=== PATIENT | female | born 1980 | race Caucasian/White ===

== ENCOUNTER 2020-10-14 17:58 | Emergency (ER) | payer OTHER ==
[~2020-10-14] VITALS: Ht 162.6 cm; Wt 65.8 kg
[~2020-10-14 17:58] MED LIST: ALBU90OI INH; ALPR.25 PO; ALPR.5; AMIT50 PO; AMOCLA500 PO; ATOM40; BUSP15; CEPH500 PO; CITA20 PO; CRUTCH3 USE; CRUTCH4 USE; CYCL10 PO; DIPH25 PO; ERYT500 PO; HYDACE5 PO; HYDCOR1TC TOP; IBUP600 PO; IBUP800 PO; LORA1 PO; MAGCIT300 PO; META800 PO; METO10 PO; METPRE4DP PO; NAPR500; Naprosyn500 MG PO; OXYACE5T PO; PENVK500 PO; PROACE100 PO; PRODEXEL PO; PROM25 PO; RXCLIN PO; RXIBUP800 PO; RXPROACE PO; RXTRAM50 PO; SERT100; SERT50 PO; SULTRIDS PO; TRAM50 PO; Zithromax250 MG PO
[2020-10-14 18:56] LABS: Source, Urine Clean Catch
[2020-10-14 18:56] LABS: BASOPHILS ABSOLUTE AUTO 0.03 K/mm3 (0.00-0.23); BASOPHILS PERCENT AUTO 0 % (0-2); EOSINOPHILS ABSOLUTE AUTO 0.06 K/mm3 (0.00-0.68); EOSINOPHILS PERCENT AUTO 1 % (0-6); Hematocrit 37.4 % (33.0-51.0); Hemoglobin 12.7 g/dL (11.5-16.0); IMMATURE GRAN ABSOLUTE AUTO 0.06 K/mm3 (0.00-0.10); IMMATURE GRAN PERCENT AUTO 1 % (0-1); LYMPHOCYTES ABSOLUTE AUTO 0.79 K/mm3 (0.84-5.20); LYMPHOCYTES PERCENT AUTO 9 % (21-46); MONOCYTES ABSOLUTE AUTO 0.38 K/mm3 (0.16-1.47); MONOCYTES PERCENT AUTO 4 % (4-13); Mean Corpuscular HGB 30.1 pg (26.0-34.0); Mean Corpuscular Volume 89 fL (80-100); Mean Platelet Volume 10.3 fL (9.1-12.4); NEUTROPHILS ABSOLUTE AUTO 7.51 K/mm3 (1.96-9.15); NEUTROPHILS PERCENT AUTO 85 % (41-73); Platelet Count 138 K/mm3 (150-400); RDW Coefficient Variation 17.7 % (11.7-14.2); RDW Standard Deviation 57.1 fL (35.1-46.3); Red Blood Cell Count 4.22 M/mm3 (3.80-5.20); White Blood Cell Count 8.83 K/mm3 (4.00-11.30)
[2020-10-14 19:02] LABS: Appearance, Urine Hazy (Clear); Blood, Urine 2+ (Neg); Color, Urine Yellow (P-Yellow); Glucose Qualitative, Urine 1+ (Neg); Ketones, Urine 2+ (Neg); Leukocyte Esterase, Urine 1+ (Neg); Nitrite, Urine Neg (Neg); Protein, Urine 3+ (Neg); Urobilinogen, Urine 2+ (Normal)
[2020-10-14 19:18] LABS: Ethanol (Alcohol), Blood, Med <3 mg/dL; Salicylate 6.4 mg/dL (2.8-20.0)
[2020-10-14 19:31] LABS: Alanine Aminotransfer (ALT/SGP 142 U/L (12-78); Albumin, Blood 3.4 g/dL (3.4-5.0); Albumin/Globulin Ratio 0.7 (0.8-1.8); Alk Phos 468 U/L (50-136); Anion Gap 11 mmol/L (6-16); Aspartate Aminotrans (AST/SGOT 324 U/L (12-37); Bilirubin, Total 0.6 mg/dL (0.1-1.0); Blood Urea Nitrogen 5 mg/dL (8-24); Bun/Creatinine Ratio 10.7 (12.0-20.0); CO2, Blood 25 mmol/L (21-32); Calcium, Blood 9.8 mg/dL (8.5-10.1); Chloride, Blood 96 mmol/L (98-108); Creatinine, Blood 0.47 mg/dL (0.40-1.00); Globulin, Blood 4.7 g/dL (2.2-4.0); Glomerular Filtration Rate >60 (60-); Glucose, Blood 179 mg/dL (70-99); Potassium, Blood 3.6 mmol/L (3.5-5.5); Sodium, Blood 132 mmol/L (136-145); Total Protein, Blood 8.1 g/dL (6.4-8.2)
[2020-10-14 19:36] LABS: Acetaminophen, Random <2.0 ug/mL (10.0-30.0)
[2020-10-14 19:40] LABS: Bilirubin, Urine 1+ (Neg)
[2020-10-14 19:42] LABS: Calcium Oxalate Crystals Many /hpf
[2020-10-14 19:43] LABS: Bacteria Not Seen /hpf; Red Blood Cells, Urine 0-2 /hpf (0-2); Squamous Epithelial Cells Few /hpf (Few); White Blood Cells, Urine 0-2 /hpf (0-5)
[2020-10-14 19:45] LABS: Specific Gravity, Urine 1.025 (1.003-1.022)
[2020-10-14 19:59] LABS: U Amphetamine Screen Not Detected; U Barbituate Screen Not Detected; U Benzodiazapine Screen Not Detected; U Buprenorphine Screen Not Detected; U Cannabinoids Screen Not Detected; U Cocaine Screen Not Detected; U Methadone Screen Not Detected; U Methamphetamine Screen Not Detected; U Opiates Screen Not Detected; U Oxycodone Screen Not Detected; U Phencyclidine Screen Not Detected; U Propoxyphene Screen Not Detected
== END 2020-10-14 20:41 | disposition home or self-care (01) ==
LOC: ER 17:58
PROVIDERS: Emergency Medicine
DX: R41.82 Altered mental status, unspecified (principal); F17.210 Nicotine dependence, cigarettes, uncomplicated; Z88.0 Allergy status to penicillin; Z88.5 Allergy status to narcotic agent
CPT/HCPCS: 36415; 80053; 81001; 82140; 83690; 85025; 87086; 99284; G0480; J7030

== ENCOUNTER 2020-11-25 16:54 | Emergency (ER) | payer OTHER ==
[~2020-11-25] VITALS: Ht 160 cm; Wt 54.4 kg
[2020-11-25 17:49] LABS: BASOPHILS ABSOLUTE AUTO 0.03 K/mm3 (0.00-0.23); BASOPHILS PERCENT AUTO 0 % (0-2); EOSINOPHILS ABSOLUTE AUTO 0.02 K/mm3 (0.00-0.68); EOSINOPHILS PERCENT AUTO 0 % (0-6); Hematocrit 34.6 % (33.0-51.0); Hemoglobin 11.6 g/dL (11.5-16.0); IMMATURE GRAN ABSOLUTE AUTO 0.05 K/mm3 (0.00-0.10); IMMATURE GRAN PERCENT AUTO 1 % (0-1); LYMPHOCYTES PERCENT AUTO 14 % (21-46); MONOCYTES ABSOLUTE AUTO 0.68 K/mm3 (0.16-1.47); MONOCYTES PERCENT AUTO 9 % (4-13); Mean Corpuscular HGB 31.3 pg (26.0-34.0); Mean Corpuscular HGB Conc 33.5 g/dL (31.5-36.5); Mean Corpuscular Volume 93 fL (80-100); Mean Platelet Volume 10.6 fL (9.1-12.4); NEUTROPHILS ABSOLUTE AUTO 6.16 K/mm3 (1.96-9.15); NEUTROPHILS PERCENT AUTO 77 % (41-73); Platelet Count 159 K/mm3 (150-400); RDW Coefficient Variation 16.9 % (11.7-14.2); RDW Standard Deviation 57.9 fL (35.1-46.3); Red Blood Cell Count 3.71 M/mm3 (3.80-5.20); White Blood Cell Count 8.04 K/mm3 (4.00-11.30)
[2020-11-25 18:06] LABS: Alanine Aminotransfer (ALT/SGP 74 U/L (12-78); Albumin, Blood 3.4 g/dL (3.4-5.0); Albumin/Globulin Ratio 0.9 (0.8-1.8); Alk Phos 270 U/L (50-136); Anion Gap 14 mmol/L (6-16); Aspartate Aminotrans (AST/SGOT 160 U/L (12-37); Bilirubin, Total 0.5 mg/dL (0.1-1.0); Blood Urea Nitrogen 4 mg/dL (8-24); Bun/Creatinine Ratio 13.3 (12.0-20.0); CO2, Blood 22 mmol/L (21-32); Calcium, Blood 8.6 mg/dL (8.5-10.1); Chloride, Blood 97 mmol/L (98-108); Globulin, Blood 3.8 g/dL (2.2-4.0); Glomerular Filtration Rate >60 (60-); Glucose, Blood 142 mg/dL (70-99); Potassium, Blood 3.7 mmol/L (3.5-5.5); Sodium, Blood 133 mmol/L (136-145); Total Protein, Blood 7.2 g/dL (6.4-8.2)
[2020-11-25] MEDS ORDERED: Keflex500 MG PO (20:45)
[2020-11-25] MEDS ORDERED: LEVE500 PO (20:45)
[2020-11-26] MEDS ORDERED: PERIDEX15 ML MM (01:36)
== END 2020-11-25 20:56 | disposition home or self-care (01) ==
LOC: ER 16:54
PROVIDERS: Emergency Medicine
DX: R56.9 Unspecified convulsions (principal); S01.111A Laceration without foreign body of right eyelid and periocular area, initial encounter; S01.552A Open bite of oral cavity, initial encounter; W01.0XXA Fall on same level from slipping, tripping and stumbling without subsequent striking against object, initial encounter; Z88.0 Allergy status to penicillin; Z88.5 Allergy status to narcotic agent
CPT/HCPCS: 12013; 70450; 80053; 85025; 93005; 93010; 99284-25; A9270

== ENCOUNTER 2021-10-31 13:22 | Inpatient (IN) | payer OTHER ==
[~2021-10-31] VITALS: Ht 157.5 cm; Wt 55.1 kg
[~2021-10-31 13:22] MED LIST changes: +Keflex500 MG PO; +LEVE500 PO; +PERIDEX15 ML MM
[2021-10-31 15:29] LABS: BASOPHILS ABSOLUTE AUTO 0.02 K/mm3 (0.00-0.23); BASOPHILS PERCENT AUTO 0 % (0-2); EOSINOPHILS ABSOLUTE AUTO 0.01 K/mm3 (0.00-0.68); EOSINOPHILS PERCENT AUTO 0 % (0-6); Hematocrit 38.9 % (33.0-51.0); IMMATURE GRAN ABSOLUTE AUTO 0.03 K/mm3 (0.00-0.10); IMMATURE GRAN PERCENT AUTO 0 % (0-1); LYMPHOCYTES ABSOLUTE AUTO 0.99 K/mm3 (0.84-5.20); LYMPHOCYTES PERCENT AUTO 11 % (21-46); MONOCYTES ABSOLUTE AUTO 0.57 K/mm3 (0.16-1.47); MONOCYTES PERCENT AUTO 7 % (4-13); Mean Corpuscular HGB 30.4 pg (26.0-34.0); Mean Corpuscular HGB Conc 33.4 g/dL (31.5-36.5); Mean Corpuscular Volume 91 fL (80-100); Mean Platelet Volume 10.2 fL (9.1-12.4); NEUTROPHILS ABSOLUTE AUTO 7.07 K/mm3 (1.96-9.15); NEUTROPHILS PERCENT AUTO 81 % (41-73); Platelet Count 205 K/mm3 (150-400); RDW Coefficient Variation 16.6 % (11.7-14.2); RDW Standard Deviation 55.4 fL (35.1-46.3); Red Blood Cell Count 4.28 M/mm3 (3.80-5.20); White Blood Cell Count 8.69 K/mm3 (4.00-11.30)
[2021-10-31 16:11] LABS: Albumin, Blood 3.6 g/dL (3.4-5.0); Bilirubin, Total 0.7 mg/dL (0.1-1.0); Bun/Creatinine Ratio 15.8 (12.0-20.0); Calcium, Blood 9.3 mg/dL (8.5-10.1); Creatinine, Blood 0.38 mg/dL (0.40-1.00); Globulin, Blood 3.7 g/dL (2.2-4.0); Potassium, Blood 3.8 mmol/L (3.5-5.5); Total Protein, Blood 7.3 g/dL (6.4-8.2)
[2021-10-31] MEDS ORDERED: LISI5 PO (16:30)
[2021-10-31 17:37] LABS: U Amphetamine Screen Not Detected; U Barbituate Screen Not Detected; U Benzodiazapine Screen Not Detected; U Buprenorphine Screen Not Detected; U Cannabinoids Screen Not Detected; U Cocaine Screen Not Detected; U Methadone Screen Not Detected; U Methamphetamine Screen Not Detected; U Opiates Screen Not Detected; U Oxycodone Screen Not Detected; U Phencyclidine Screen Not Detected; U Propoxyphene Screen Not Detected
--- NOTE | 2021-11-01 04:43 | NUR ---
PT ARRIVED ON THE FLOOR AT 2039 REQUESTING PAIN MEDICATION. PT IS INDEPENDENT IN ROOM. PT VOMITING AND MEIDCATED PER JUN. PT REPORTS NOT DRINKING REGULARLY AND STATES SHE IS NOT WITHDRAWING FROM ALCOHOL. FLUIDS INFUSING, PATIENT MEDICATED WITH DILAUDID AND COMPAZINE.
[2021-11-01 05:38] LABS: BASOPHILS ABSOLUTE AUTO 0.02 K/mm3 (0.00-0.23); BASOPHILS PERCENT AUTO 0 % (0-2); EOSINOPHILS ABSOLUTE AUTO 0.02 K/mm3 (0.00-0.68); EOSINOPHILS PERCENT AUTO 0 % (0-6); Hematocrit 36.3 % (33.0-51.0); Hemoglobin 11.9 g/dL (11.5-16.0); IMMATURE GRAN ABSOLUTE AUTO 0.02 K/mm3 (0.00-0.10); IMMATURE GRAN PERCENT AUTO 0 % (0-1); LYMPHOCYTES ABSOLUTE AUTO 0.56 K/mm3 (0.84-5.20); LYMPHOCYTES PERCENT AUTO 7 % (21-46); MONOCYTES ABSOLUTE AUTO 0.53 K/mm3 (0.16-1.47); MONOCYTES PERCENT AUTO 6 % (4-13); Mean Corpuscular HGB 30.6 pg (26.0-34.0); Mean Corpuscular HGB Conc 32.8 g/dL (31.5-36.5); Mean Corpuscular Volume 93 fL (80-100); Mean Platelet Volume 10.6 fL (9.1-12.4); NEUTROPHILS ABSOLUTE AUTO 7.37 K/mm3 (1.96-9.15); NEUTROPHILS PERCENT AUTO 87 % (41-73); Platelet Count 164 K/mm3 (150-400); RDW Coefficient Variation 16.5 % (11.7-14.2); RDW Standard Deviation 55.8 fL (35.1-46.3); Red Blood Cell Count 3.89 M/mm3 (3.80-5.20); White Blood Cell Count 8.52 K/mm3 (4.00-11.30)
[2021-11-01 05:48] LABS: Albumin, Blood 3.2 g/dL (3.4-5.0); Bilirubin, Total 0.5 mg/dL (0.1-1.0); Bun/Creatinine Ratio 16.9 (12.0-20.0); Calcium, Blood 9.2 mg/dL (8.5-10.1); Creatinine, Blood 0.35 mg/dL (0.40-1.00); Globulin, Blood 3.2 g/dL (2.2-4.0); Potassium, Blood 3.6 mmol/L (3.5-5.5); Total Protein, Blood 6.4 g/dL (6.4-8.2)
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
[2021-11-02 05:56] LABS: Bun/Creatinine Ratio 9.8 (12.0-20.0); Calcium, Blood 9.3 mg/dL (8.5-10.1); Creatinine, Blood 0.31 mg/dL (0.40-1.00); Potassium, Blood 3.5 mmol/L (3.5-5.5)
--- NOTE | 2021-11-02 19:28 | NUR ---
SUMMARY- PT A/O X3-4, MILD DELUSIONS AND ANXIETY, CIWAA 8 X2, MEDICATED WITH LIBRIUM 25MG WHICH WAS HELPFUL TO DECREASE ANXIETY. PT HAD MIN ABD PAIN, MEDICATED X3 WITH DILAUDID 1MG IV WITH RELEIF. PT TOLERATED UP TO FULL LIQ DIET AND VERY UPSET SHE CANT HAVE A REGULAR DIET, "I CAN'T LIVE ON THIS STUFF, I NEVER WANT TO SEE [facility] AGAIN". PT GETS AGGITATED EASILY. HOPEFUL TO GO HOME TOMORROW.
[2021-11-03 05:29] LABS: BASOPHILS ABSOLUTE AUTO 0.02 K/mm3 (0.00-0.23); BASOPHILS PERCENT AUTO 0 % (0-2); EOSINOPHILS ABSOLUTE AUTO 0.12 K/mm3 (0.00-0.68); EOSINOPHILS PERCENT AUTO 2 % (0-6); Hemoglobin 12.4 g/dL (11.5-16.0); IMMATURE GRAN ABSOLUTE AUTO 0.02 K/mm3 (0.00-0.10); IMMATURE GRAN PERCENT AUTO 0 % (0-1); LYMPHOCYTES ABSOLUTE AUTO 1.37 K/mm3 (0.84-5.20); LYMPHOCYTES PERCENT AUTO 18 % (21-46); MONOCYTES ABSOLUTE AUTO 0.39 K/mm3 (0.16-1.47); MONOCYTES PERCENT AUTO 5 % (4-13); Mean Corpuscular HGB 30.6 pg (26.0-34.0); Mean Corpuscular HGB Conc 33.5 g/dL (31.5-36.5); Mean Corpuscular Volume 91 fL (80-100); Mean Platelet Volume 11.7 fL (9.1-12.4); NEUTROPHILS ABSOLUTE AUTO 5.63 K/mm3 (1.96-9.15); NEUTROPHILS PERCENT AUTO 75 % (41-73); Platelet Count 117 K/mm3 (150-400); RDW Coefficient Variation 16.3 % (11.7-14.2); RDW Standard Deviation 54.9 fL (35.1-46.3); Red Blood Cell Count 4.05 M/mm3 (3.80-5.20); White Blood Cell Count 7.55 K/mm3 (4.00-11.30)
[2021-11-03 06:02] LABS: Albumin, Blood 3.1 g/dL (3.4-5.0); Albumin/Globulin Ratio 0.9 (0.8-1.8); Bilirubin, Total 0.3 mg/dL (0.1-1.0); Bun/Creatinine Ratio 6.3 (12.0-20.0); Calcium, Blood 9.5 mg/dL (8.5-10.1); Creatinine, Blood 0.32 mg/dL (0.40-1.00); Globulin, Blood 3.5 g/dL (2.2-4.0); Potassium, Blood 3.2 mmol/L (3.5-5.5); Total Protein, Blood 6.6 g/dL (6.4-8.2)
--- NOTE | 2021-11-03 08:00 | NUR ---
pt laying in bed awake watching tv, very anxious, and repeatadly asking to go home or go smoke, explained she can't smoke here, and offered her the nicotine gum, refused lovenox because she can't handle needles, after speaking with her sister her anxiety was worse, she complains of pain in epigastric area, will medicate for that, lungs are clear dim in bases, resp even and unlabored, no cough noted, on r/a, hrr, no edema noted, ppp+1, cap refill<3sec, vs stable, afebrile, iv site to left ac, site is clear and patent, btx4, abd flat soft nontender, voids without diff, skin c/w/d, jay, sonam, call light in reach.
[2021-11-03] MEDS ORDERED: NICO2 PO (15:33)
[2021-11-03] MEDS ORDERED: TRAM50 PO (15:33)
[2021-11-03] MEDS ORDERED: FAMO20 PO (15:33)
[2021-11-03] MEDS ORDERED: CHLO25 PO (15:33)
--- NOTE | 2021-11-03 15:46 | NUR ---
pt decided it was time for her to go home, and escalated her aggitation demanding to go home standing in the fowler, after it was explained to her that we have to wait until puts the orders in and then I do my part, she would not accept that, asked charge to assist with her, after I spoke to and asked her to discharge her now, this was done, she waited at the desk until the paper work was complete. left via ambulation with all her belongings.
== END 2021-11-03 15:43 | disposition home or self-care (01) | DRG 439 ==
LOC: ER 13:22 → MEDS 19:10
PROVIDERS: Family Medicine; Internal Medicine; Student in an Organized Health Care Education/Training Program; ADMIT Internal Medicine
DX: K85.20 Alcohol induced acute pancreatitis without necrosis or infection (principal); E44.0 Moderate protein-calorie malnutrition; E87.1 Hypo-osmolality and hyponatremia; F32.A Depression, unspecified; G43.909 Migraine, unspecified, not intractable, without status migrainosus; F17.210 Nicotine dependence, cigarettes, uncomplicated; K70.10 Alcoholic hepatitis without ascites; F10.20 Alcohol dependence, uncomplicated; G40.909 Epilepsy, unspecified, not intractable, without status epilepticus; R74.01 Elevation of levels of liver transaminase levels; E87.6 Hypokalemia; Z68.22 Body mass index [BMI] 22.0-22.9, adult; Z90.49 Acquired absence of other specified parts of digestive tract; Z98.890 Other specified postprocedural states; Z88.0 Allergy status to penicillin; Z88.6 Allergy status to analgesic agent; Z79.2 Long term (current) use of antibiotics; Z79.899 Other long term (current) drug therapy
CPT/HCPCS: 36415; 71046; 76705; 80048; 80053; 82947; 83690; 84484; 85025; 93005; 93010; 94760; 96365; 96375; 99285-25; A9270; J0780; J1170; J1650; J1953; J2270; J3480; J7120

== ENCOUNTER 2022-07-29 12:33 | Inpatient (IN) | payer OTHER ==
[~2022-07-29] VITALS: Ht 160 cm; Wt 53.1 kg
[~2022-07-29 12:33] MED LIST changes: +CHLO25 PO; +FAMO20 PO; +LISI5 PO; +NICO2 PO
[2022-07-29 13:05] LABS: BASOPHILS ABSOLUTE AUTO 0.03 K/mm3 (0.00-0.23); BASOPHILS PERCENT AUTO 1 % (0-2); EOSINOPHILS ABSOLUTE AUTO 0.06 K/mm3 (0.00-0.68); EOSINOPHILS PERCENT AUTO 1 % (0-6); Hematocrit 40.9 % (33.0-51.0); Hemoglobin 13.3 g/dL (11.5-16.0); IMMATURE GRAN ABSOLUTE AUTO 0.01 K/mm3 (0.00-0.10); IMMATURE GRAN PERCENT AUTO 0 % (0-1); LYMPHOCYTES ABSOLUTE AUTO 1.64 K/mm3 (0.84-5.20); LYMPHOCYTES PERCENT AUTO 25 % (21-46); MONOCYTES ABSOLUTE AUTO 0.59 K/mm3 (0.16-1.47); MONOCYTES PERCENT AUTO 9 % (4-13); Mean Corpuscular HGB 30.3 pg (26.0-34.0); Mean Corpuscular HGB Conc 32.5 g/dL (31.5-36.5); Mean Corpuscular Volume 93 fL (80-100); Mean Platelet Volume 9.7 fL (9.1-12.4); NEUTROPHILS ABSOLUTE AUTO 4.27 K/mm3 (1.96-9.15); NEUTROPHILS PERCENT AUTO 65 % (41-73); Platelet Count 390 K/mm3 (150-400); RDW Coefficient Variation 15.6 % (11.7-14.2); RDW Standard Deviation 52.8 fL (35.1-46.3); Red Blood Cell Count 4.39 M/mm3 (3.80-5.20)
[2022-07-29 14:21] LABS: Albumin, Blood 4.1 g/dL (3.4-5.0); Albumin/Globulin Ratio 1.1 (0.8-1.8); Bilirubin, Total 0.3 mg/dL (0.1-1.0); Bun/Creatinine Ratio 25.8 (12.0-20.0); Calcium, Blood 9.1 mg/dL (8.5-10.1); Creatinine, Blood 0.31 mg/dL (0.40-1.00); Globulin, Blood 3.8 g/dL (2.2-4.0); Potassium, Blood 4.1 mmol/L (3.5-5.5); Total Protein, Blood 7.9 g/dL (6.4-8.2)
[2022-07-29 22:30] LABS: Hematocrit 31.4 % (33.0-51.0); Hemoglobin 10.2 g/dL (11.5-16.0)
--- NOTE | 2022-07-29 23:56 | NUR ---
ADMIT ARRIVED AT 2340 TO RM 311. DX c RECTAL BLEEDING. ORIENTED TO RM & CALL LIGHT, REPORTING PAIN SOON ENTERING RM 11/30 R SIDE ABD. WILL MEDICATE & MONITOR.
[2022-07-30 05:27] LABS: BASOPHILS ABSOLUTE AUTO 0.03 K/mm3 (0.00-0.23); BASOPHILS PERCENT AUTO 1 % (0-2); EOSINOPHILS ABSOLUTE AUTO 0.08 K/mm3 (0.00-0.68); EOSINOPHILS PERCENT AUTO 1 % (0-6); Hematocrit 30.8 % (33.0-51.0); Hemoglobin 10.1 g/dL (11.5-16.0); IMMATURE GRAN ABSOLUTE AUTO 0.02 K/mm3 (0.00-0.10); IMMATURE GRAN PERCENT AUTO 0 % (0-1); LYMPHOCYTES ABSOLUTE AUTO 1.66 K/mm3 (0.84-5.20); LYMPHOCYTES PERCENT AUTO 27 % (21-46); MONOCYTES ABSOLUTE AUTO 0.59 K/mm3 (0.16-1.47); MONOCYTES PERCENT AUTO 10 % (4-13); Mean Corpuscular HGB 30.7 pg (26.0-34.0); Mean Corpuscular HGB Conc 32.8 g/dL (31.5-36.5); Mean Corpuscular Volume 94 fL (80-100); Mean Platelet Volume 9.8 fL (9.1-12.4); NEUTROPHILS ABSOLUTE AUTO 3.67 K/mm3 (1.96-9.15); NEUTROPHILS PERCENT AUTO 61 % (41-73); Platelet Count 345 K/mm3 (150-400); RDW Coefficient Variation 15.7 % (11.7-14.2); RDW Standard Deviation 53.5 fL (35.1-46.3); Red Blood Cell Count 3.29 M/mm3 (3.80-5.20); White Blood Cell Count 6.05 K/mm3 (4.00-11.30)
--- NOTE | 2022-07-30 05:37 | NUR ---
SHIFT SUMMARY AOX4. VSS. ADMITTED FOR GI BLEED. HAD 4 EPISODES SM AMOUNT RECTAL BLEEDING SEEN BY THIS NURSE. OUTPUT PINK LEMONADE IN COLOR TO BRIGHT CRANBERRY RED THE LAST TIME, NOTED SM DIME SIZE CLOT 1x. REPORTS 3-12/31 ABD PAIN, MEDICATED 1x c 25MCG FENT & WITHIN 1HR PAIN HAD INCREASED TO 9/10, INFORMED DR TRACY & HE ORDERED 1-2 MG IV DILAUDID Q6, MEDICATED & MONITORING. CHECKED RECTAL AREA & PT HAS SM PURPLE PEA SIZE HEMORRHOID OUTSIDE RECTUM NOTED UPON EXAM. DENIES N/V, TOLERATING CLEAR LIQUIDS. ABD TENDER TO PALPATION. CALLED IN CONSULT TO DR JONAS ANSWERING SERVICE. THIS AM PT APPEARS MORE CONFUSED & FORGOT I WAS HER NURSE, STATES SHE NORMALLY DRINKS ROUGHLY 50oz BEER DAILY & HASNT HAD ANYTHING TO DRINK SINCE 07/28/22, WILL INFORM ROSSANA & START CIWAS. CALL LIGHT IN REACH, WILL MONITOR.
[2022-07-30 05:59] LABS: Albumin, Blood 3.4 g/dL (3.4-5.0); Albumin/Globulin Ratio 1.1 (0.8-1.8); Bilirubin, Total 0.3 mg/dL (0.1-1.0); Calcium, Blood 8.6 mg/dL (8.5-10.1); Creatinine, Blood 0.29 mg/dL (0.40-1.00); Globulin, Blood 3.2 g/dL (2.2-4.0); Potassium, Blood 4.3 mmol/L (3.5-5.5); Total Protein, Blood 6.6 g/dL (6.4-8.2)
[2022-07-30 10:34] LABS: Hematocrit 30.9 % (33.0-51.0); Hemoglobin 9.9 g/dL (11.5-16.0)
--- NOTE | 2022-07-30 11:21 | NUR ---
DR. JONAS IN ROOM TO SEE PATIENT. CLEARED FOR FULL LIQUID DIET AT THIS TIME. WATER ONLY AT 0300 ON 07/31/22 AND NPO AT 1300. PLAN IS FOR A COLONOSCOPY TOMORROW EVENING.
[2022-07-30 16:27] LABS: Hematocrit 31.7 % (33.0-51.0); Hemoglobin 10.1 g/dL (11.5-16.0)
--- NOTE | 2022-07-30 19:42 | NUR ---
SHIFT SUMMARY ASSUMED CARE OF PTN AT 1150, REPORT GIVEN BY EVAN COOLEY. AGREE WITH ASSESSMENT DONE. CIWA SCORED LOW AT FIRST, BUT THEN PTN AMPED UP AND WANTED TO LEAVE, ANXIETY AND AGITATION EVIDENT. CIWA AGAIN DONE AND MEDICATION GIVEN PER PROTOCOL. END SHIFT, AFTER MEDICATED X2, ANXIETY AND AGITATION WERE AGAIN AT A MINIMUM. PTN DOES HAVE NOTED TREMOR. PLAN FOR COLONOSCOPY TOMORROW LATER IN DAY WITH INSTRUCTIONS ON WHITE BOARD FOR WATER ONLY AFTER 0300 TOMORROW AND NPO AFTER 1300. PAIN TO THE RIGHT ABD AREA, MEDICATED PER EMAR.
--- NOTE | 2022-07-31 04:19 | NUR ---
SHIFT SUMMARY NOC PT A/O X 4. PLEASANT AND COOPERATIVE WITH CARE. PT ONLY GOT AGITATED DURING SHIFT ONCE WHEN DEMANDING FOOD BEFORE BEING PUT ON ONLY WATER BEFORE 0300. CIWA WAS PERFORMED AND PT SCORED 7. PT HAD C/O OF PAIN IN RLQ AND WAS MEDICATED PER EMAR. PT IS ON WATER ONLY FROM 0300 TO 1300 WHEN THEY WILL BECOME NPO FOR COLONOSCOPY SCEDULED TOMMOROW EVENING. PT REPORTED NO BLOOD DURING SHIFT IN WHEN USING BATHROOM. PT IS CURRENTLY RESTING WITH BED IN LOWEST POSITION, AND CALL LIGHT WITHIN REACH.
--- NOTE | 2022-07-31 04:25 | NUR ---
SHIFT SUMMARY NOC PT A/O X 4. PLEASANT AND COOPERATIVE WITH CARE. PT ONLY GOT AGITATED DURING SHIFT ONCE WHEN DEMANDING FOOD BEFORE BEING PUT ON ONLY WATER BEFORE 0300. CIWA WAS PERFORMED AND PT SCORED 7. PT HAD C/O OF PAIN IN RLQ AND WAS MEDICATED PER EMAR. PT IS ON WATER ONLY FROM 0300 TO 1300 WHEN THEY WILL BECOME NPO FOR COLONOSCOPY SCEDULED TOMMOROW EVENING. PT REPORTED NO BLOOD DURING SHIFT IN WHEN USING BATHROOM. PT ON TELE RUNNING SINUS RHYTHM HR 75 BPM. PT IS CURRENTLY RESTING WITH BED IN LOWEST POSITION, AND CALL LIGHT WITHIN REACH.
--- NOTE | 2022-07-31 17:41 | NUR ---
SUMMARY- PT A/O X4, INDEPENDANT IN ROOM. PREPED FOR COLONOSCOPY THIS ARLETTE. WAS PASSING CLEAR STOOL WITH BROWN SEDIMENT ON THE BOTTOM OF TOILET. PT STATES SHE IS HAVING SEVERE RLQ ABS PAIN. MEDICATED WITH OXY 10 WITH PARTIAL RELEIF FOR 4 HOURS AND SEVERE AGAIN BEFORE 6 HOURS- TAKEN FOR SCOPE AT 1700. MEDICATED WITH ATIVAN FOR CIWAA 15 THIS AM WITH RELEIF. MED WITH LIBRIUM 25MG X2 LATER IN THE DAY FOR CIWAA 10 WITH RELEIF. NO VISIBLE BLOOD IN STOOL, JUST SMALL AMT ON TOILET PAPER.
--- NOTE | 2022-07-31 18:03 | NUR ---
07/31/22 1804 Lynette Rowland HISTORY, CHART, MEDICATIONS AND ALLERGIES REVIEWED BEFORE START OF PROCEDURE. PATIENT CONFIRMS NPO STATUS AND AGREES WITH SCHEDULED PROCEDURE. 3-LEAD EKG REVIEWED WITH PHYSICIAN PRIOR TO START OF PROCEDURE. MONITOR INTACT WITH CONTINUOUS PULSE OXIMETRY,CAPNOGRAPHY, 3-LEAD EKG, INTERMITTENT BP. SUPPLEMENTAL O2 TO BE TITRATED THROUGHOUT PROCEDURE TO MAINTAIN O2 SATURATION ABOVE 90%. PATIENT DETERMINED TO BE ASA APPROPRIATE FOR PROPOFOL SEDATION PRIOR TO START OF PROCEDURE BY DR. JONAS
--- NOTE | 2022-07-31 19:44 | NUR ---
PT BACK FROM COLONOSCOPY AT 1850, ALERT AND ORIENTED, SLIGHTLY GROGGY. UPSET AND HUNGRY. WANTE TO GO HOME. EXPLAINED WE HAD NO MD TO DC HER TONIGHT AND THAT SHE WOULD BE BETTER IN HOSP OVERNIGHT SINCE SHE HAD SEDATION. GOT PT DINNER TRAY AND FLUIDS. NO BLEEDING FROM RECTUM NOTED.
--- NOTE | 2022-07-31 19:46 | NUR ---
SUMMARY- PT HAD COLONOSCOPY TODAY AND RETURNED 185. RN STATES THEY ONLY FOUND EXTERNAL HEMRHOIDS ON THE SCAN. OK FOR PT TO ADAT. PLAN FOR DC TOMORROW. PT STILL COMPLAINING ABOUT PAIN RLQ. ALSO HIGHLY ANXIOUS AND IRRITABLE, ABOUT EVERYTHING. NEGATIVE OUTLOOK. REPORT GIVEN TO SHERINE BOO RN.
--- NOTE | 2022-08-01 00:15 | NUR ---
SUMMARY PT NOTED WITH INCREASED LETHARGY AND SLOW TO RESPOND,BUT ANSWERING QUESTIONS TO THIS RN APPROPRIATELY. RESEARCH SUBJECT PREVIOUSLY REPORTED DID NOT ANSWER HER QUESTIONS CORRECTLY.PUPILS EQUAL AND REACTIVE,BUT EYES INITIALLY SLIGHTLY JUMPY.WHEN CONCENTRATING, ABLE TO TRACK WITH EYES. PT ALSO C/O PAIN TO R HIP/ARM/LEG. ALSO C/O MIGRAINE TONIGHT SHE HAS AT HOME. WITHOUT DIFF. NOTED INCONT OF URINE TO PANTS AND BONILLA PAD.PT ALSO REPORTED SAME R ABD PAIN ADMIT.TOLERATING PO AND REPORTS BEING "HUNGRY" I CALLED DR TRACY AND ADVISED OF ABOVE. ORDERED LABS FOR AM. NO OTHER CHANGE OF ORDERS.
[2022-08-01 05:40] LABS: BASOPHILS ABSOLUTE AUTO 0.01 K/mm3 (0.00-0.23); BASOPHILS PERCENT AUTO 0 % (0-2); EOSINOPHILS ABSOLUTE AUTO 0.11 K/mm3 (0.00-0.68); EOSINOPHILS PERCENT AUTO 2 % (0-6); Hematocrit 31.5 % (33.0-51.0); Hemoglobin 10.1 g/dL (11.5-16.0); IMMATURE GRAN ABSOLUTE AUTO 0.01 K/mm3 (0.00-0.10); IMMATURE GRAN PERCENT AUTO 0 % (0-1); LYMPHOCYTES ABSOLUTE AUTO 1.48 K/mm3 (0.84-5.20); LYMPHOCYTES PERCENT AUTO 22 % (21-46); MONOCYTES ABSOLUTE AUTO 0.47 K/mm3 (0.16-1.47); MONOCYTES PERCENT AUTO 7 % (4-13); Mean Corpuscular HGB 30.1 pg (26.0-34.0); Mean Corpuscular HGB Conc 32.1 g/dL (31.5-36.5); Mean Corpuscular Volume 94 fL (80-100); Mean Platelet Volume 9.8 fL (9.1-12.4); NEUTROPHILS ABSOLUTE AUTO 4.54 K/mm3 (1.96-9.15); NEUTROPHILS PERCENT AUTO 68 % (41-73); Platelet Count 367 K/mm3 (150-400); RDW Coefficient Variation 15.8 % (11.7-14.2); RDW Standard Deviation 53.9 fL (35.1-46.3); Red Blood Cell Count 3.36 M/mm3 (3.80-5.20); White Blood Cell Count 6.62 K/mm3 (4.00-11.30)
[2022-08-01 06:10] LABS: Albumin/Globulin Ratio 0.9 (0.8-1.8); Bilirubin, Total 0.1 mg/dL (0.1-1.0); Bun/Creatinine Ratio 19.6 (12.0-20.0); Calcium, Blood 9.4 mg/dL (8.5-10.1); Creatinine, Blood 0.61 mg/dL (0.40-1.00); Globulin, Blood 3.4 g/dL (2.2-4.0); Potassium, Blood 4.1 mmol/L (3.5-5.5); Total Protein, Blood 6.4 g/dL (6.4-8.2)
--- NOTE | 2022-08-01 08:22 | NUR ---
SUMMARY PT REQUIRED ATIVAN 1 MG IV TONIGHT FOR CIWA.RESTED AFTER. REPORTED FEELING BETTER, CONT TO EAT SNACKS PER REQUEST. THIS AM IRRITABLE AND C/O ABOUT BREAKFAST OFFERED. ALTHOUGH WHEN ASKED WHAT SHE WOULD LIKE DIFFERENT, PT STATED BEER AND CIGARETTE. DAY RN AT BEDSIDE FOR REPORT,AWARE AND WILL FOLLOW UP.PT ALERT WITH NO FURTHER INCONT.
[2022-08-01] MEDS ORDERED: METAMUCIL POWD798 GM PO (10:12)
--- NOTE | 2022-08-01 13:49 | NUR ---
PT DC'D WITH INSTRUCTIONS AT 1045, AMBULATED WITH RN ESCORT TO EXIT. STATES HER RIDE IS COMING. STEADY IN FEET.
== END 2022-08-01 10:45 | disposition home or self-care (01) | DRG 394 ==
LOC: ER 12:33 → MEDS 12:34
PROVIDERS: Internal Medicine Gastroenterology; Student in an Organized Health Care Education/Training Program; ADMIT Internal Medicine
PROC: 0DJD8ZZ Inspection of Lower Intestinal Tract, Via Natural or Artificial Opening Endoscopic (ICD-10-PCS; principal; 2022-07-31 16:00)
DX: K64.4 Residual hemorrhoidal skin tags (principal); E87.1 Hypo-osmolality and hyponatremia; F10.239 Alcohol dependence with withdrawal, unspecified; K56.7 Ileus, unspecified; R74.8 Abnormal levels of other serum enzymes; K70.9 Alcoholic liver disease, unspecified; F17.210 Nicotine dependence, cigarettes, uncomplicated; G40.909 Epilepsy, unspecified, not intractable, without status epilepticus; G43.909 Migraine, unspecified, not intractable, without status migrainosus; F32.A Depression, unspecified; I10 Essential (primary) hypertension; D50.0 Iron deficiency anemia secondary to blood loss (chronic); E11.9 Type 2 diabetes mellitus without complications; F90.9 Attention-deficit hyperactivity disorder, unspecified type; F43.10 Post-traumatic stress disorder, unspecified; K05.10 Chronic gingivitis, plaque induced; Z88.5 Allergy status to narcotic agent; Z98.890 Other specified postprocedural states; Z90.49 Acquired absence of other specified parts of digestive tract; Z87.19 Personal history of other diseases of the digestive system; Z88.0 Allergy status to penicillin; Z79.899 Other long term (current) drug therapy; Z79.811 Long term (current) use of aromatase inhibitors; Z79.891 Long term (current) use of opiate analgesic
CPT/HCPCS: 36415; 74177; 80053; 82947; 83690; 85014; 85018; 85025; 86850; 86900; 86901; 94760; 96361; 96374-59; 96375; 96376; 99285-25; A9270; J1170; J2060; J2250; J2270; J2405; J2704; J3010; J3411; J7030; J7120; Q9967

== ENCOUNTER 2022-12-22 18:41 | Emergency (ER) | payer OTHER ==
[~2022-12-22] VITALS: Ht 152.4 cm; Wt 63.5 kg
[~2022-12-22 18:41] MED LIST changes: +METAMUCIL POWD798 GM PO
[2022-12-22 19:10] LABS: BASOPHILS ABSOLUTE AUTO 0.01 K/mm3 (0.00-0.23); BASOPHILS PERCENT AUTO 0 % (0-2); EOSINOPHILS ABSOLUTE AUTO 0.05 K/mm3 (0.00-0.68); EOSINOPHILS PERCENT AUTO 1 % (0-6); Hematocrit 42.8 % (33.0-51.0); Hemoglobin 14.6 g/dL (11.5-16.0); IMMATURE GRAN ABSOLUTE AUTO 0.01 K/mm3 (0.00-0.10); IMMATURE GRAN PERCENT AUTO 0 % (0-1); LYMPHOCYTES ABSOLUTE AUTO 2.79 K/mm3 (0.84-5.20); LYMPHOCYTES PERCENT AUTO 42 % (21-46); MONOCYTES ABSOLUTE AUTO 0.39 K/mm3 (0.16-1.47); MONOCYTES PERCENT AUTO 6 % (4-13); Mean Corpuscular HGB 28.7 pg (26.0-34.0); Mean Corpuscular HGB Conc 34.1 g/dL (31.5-36.5); Mean Corpuscular Volume 84 fL (80-100); Mean Platelet Volume 9.7 fL (9.1-12.4); NEUTROPHILS ABSOLUTE AUTO 3.44 K/mm3 (1.96-9.15); NEUTROPHILS PERCENT AUTO 52 % (41-73); Platelet Count 301 K/mm3 (150-400); RDW Coefficient Variation 15.9 % (11.7-14.2); RDW Standard Deviation 49.5 fL (35.1-46.3); Red Blood Cell Count 5.08 M/mm3 (3.80-5.20); White Blood Cell Count 6.69 K/mm3 (4.00-11.30)
[2022-12-22 19:33] LABS: Albumin, Blood 3.9 g/dL (3.4-5.0); Bilirubin, Total 0.1 mg/dL (0.1-1.0); Bun/Creatinine Ratio 8.9 (12.0-20.0); Calcium, Blood 8.8 mg/dL (8.5-10.1); Creatinine, Blood 0.45 mg/dL (0.40-1.00); Globulin, Blood 4.1 g/dL (2.2-4.0); Potassium, Blood 4.2 mmol/L (3.5-5.5)
[2022-12-22 20:06] LABS: Ethanol (Alcohol), Blood, Med 276 mg/dL
[2022-12-22 21:02] LABS: Influenza A, PCR NEGATIVE (NEGATIVE); Influenza B, PCR NEGATIVE (NEGATIVE); Resp Syncytial Virus, PCR NEGATIVE (NEGATIVE)
[2022-12-22 21:12] LABS: SARS-Cov-2 (COVID-19) PCR, MMC POSITIVE (NEGATIVE)
[2022-12-22 22:13] LABS: Source, Urine Clean Catch
[2022-12-22 22:21] LABS: Bilirubin, Urine Neg (Neg); Blood, Urine Neg (Neg); Glucose Qualitative, Urine Neg (Neg); Ketones, Urine 2+ (Neg); Leukocyte Esterase, Urine Neg (Neg); Nitrite, Urine Neg (Neg); Protein, Urine Neg (Neg); Urobilinogen, Urine NORM (Normal)
[2022-12-22 22:34] LABS: Appearance, Urine Clear (Clear); Color, Urine Yellow (P-Yellow)
[2022-12-22 22:43] LABS: U Amphetamine Screen Not Detected; U Barbituate Screen Not Detected; U Benzodiazapine Screen DETECTED; U Buprenorphine Screen Not Detected; U Cannabinoids Screen Not Detected; U Cocaine Screen Not Detected; U Methadone Screen Not Detected; U Methamphetamine Screen Not Detected; U Opiates Screen Not Detected; U Oxycodone Screen Not Detected; U Phencyclidine Screen Not Detected; U Propoxyphene Screen Not Detected
[2022-12-22 23:00] VITALS: BP 120/84
[2022-12-22] MEDS ORDERED: Ibuprofen600 MG PO (23:37)
== END 2022-12-22 23:40 | disposition home or self-care (01) ==
LOC: ER 18:41
PROVIDERS: Emergency Medicine; Physician Assistant
DX: U07.1 COVID-19 (principal); Z88.5 Allergy status to narcotic agent; Z88.0 Allergy status to penicillin; Z79.899 Other long term (current) drug therapy; F17.210 Nicotine dependence, cigarettes, uncomplicated
CPT/HCPCS: 0241U; 71046; 74177; 80053; 81003; 82550; 83605; 84145; 84484; 85025; 85379; 96361; 96374-59; 96375; 99284-25; G0480; J0780; J1200; J1885; J7030; Q9967

== ENCOUNTER → 2023-02-16 | Outpatient (CLI) | payer OTHER ==
[~2023-02-16] MED LIST changes: +Ibuprofen600 MG PO
== END ==
LOC: LAB 12:13 → LAB SHORT 12:13
DX: G40.909 Epilepsy, unspecified, not intractable, without status epilepticus (principal)
CPT/HCPCS: 80177

== ENCOUNTER 2023-04-03 11:49 | Emergency (ER) | payer OTHER ==
[~2023-04-03] VITALS: Ht 162.6 cm; Wt 59.0 kg
[2023-04-03 11:55] VITALS: BP 129/102
[2023-04-03] MEDS ORDERED: ACET325 PO (13:20)
[2023-04-03] MEDS ORDERED: OXYC5 PO (13:20)
[2023-04-03] MEDS ORDERED: IBUP600 PO (13:20)
[2023-04-03] MEDS ORDERED: ONDA4ODT MM (13:20)
[2023-04-04] MEDS ORDERED: OXYC5 PO (09:22)
== END 2023-04-03 13:35 ==
LOC: ER 11:49
DX: S52.501A Unspecified fracture of the lower end of right radius, initial encounter for closed fracture (principal); W19.XXXA Unspecified fall, initial encounter; F32.A Depression, unspecified; F17.210 Nicotine dependence, cigarettes, uncomplicated; Z88.0 Allergy status to penicillin; Z88.5 Allergy status to narcotic agent; Z79.899 Other long term (current) drug therapy
CPT/HCPCS: 29125; 73110; 99283-25; A9270

== ENCOUNTER 2023-10-13 16:30 | Emergency (ER) | payer OTHER ==
[~2023-10-13] VITALS: Ht 160 cm; Wt 50.8 kg
[~2023-10-13 16:30] MED LIST changes: +ACET325 PO; +ONDA4ODT MM; +OXYC5 PO
[2023-10-13 16:31] VITALS: BP 165/107
[2023-10-13] MEDS ORDERED: Ketorolac Tromethamine 10 MG Tab PO ONE (18:55)
== END 2023-10-13 19:20 | disposition home or self-care (01) ==
LOC: ER 16:30
DX: S93.402A Sprain of unspecified ligament of left ankle, initial encounter (principal); G43.909 Migraine, unspecified, not intractable, without status migrainosus; F17.210 Nicotine dependence, cigarettes, uncomplicated; W54.1XXA Struck by dog, initial encounter; Z79.899 Other long term (current) drug therapy; Z88.0 Allergy status to penicillin; Z88.5 Allergy status to narcotic agent
CPT/HCPCS: 73630; 99283-25; A9270

== ENCOUNTER 2024-02-24 13:38 | Emergency (ER) | payer OTHER ==
[~2024-02-24] VITALS: Ht 160 cm; Wt 54.4 kg
[2024-02-24 13:55] VITALS: BP 157/93
[2024-02-24] MEDS ORDERED: Ibuprofen 400 MG Tab PO ONE ×2 (14:00→16:15)
[2024-02-24] MEDS ORDERED: Prochlorperazine Edisylate 10 mg Vial IV ONE (16:50)
[2024-02-24] MEDS ORDERED: DiphenhydrAMINE HCl 50 MG/ML 1ML Vial IV ONE (16:50)
[2024-02-24] MEDS ORDERED: NS 1,000 ML IV SCH (16:50)
[2024-02-24] MEDS ORDERED: Ketorolac Tromethamine 15mg Vial IV ONE (16:50)
== END 2024-02-24 18:18 | disposition home or self-care (01) ==
LOC: ER 13:38
DX: G43.909 Migraine, unspecified, not intractable, without status migrainosus (principal); G40.909 Epilepsy, unspecified, not intractable, without status epilepticus; Z87.891 Personal history of nicotine dependence; Z88.0 Allergy status to penicillin; Z88.5 Allergy status to narcotic agent; Z79.899 Other long term (current) drug therapy
CPT/HCPCS: 70450; 96361; 96374; 96375; 99284-25; A9270; J0780; J1200; J1885; J7030

== ENCOUNTER 2024-04-07 16:09 | Observation (INO) | payer OTHER ==
[~2024-04-07] VITALS: Ht 157.5 cm; Wt 56.8 kg
[~2024-04-07 16:09] MED LIST changes: +1/2 NS 250ml250 ML; +Cyclobenzaprine5 MG PO; +KETO10 PO; +Nicorette4 MG BC; +PROP10 PO
[2024-04-07] MEDS ORDERED: FentaNYL Citrate 50 MCG/ML 2 ML Injection IV ONE (16:25)
[2024-04-07 16:32] LABS: BASOPHILS ABSOLUTE AUTO 0.04 K/mm3 (0.00-0.23); BASOPHILS PERCENT AUTO 0 % (0-2); EOSINOPHILS ABSOLUTE AUTO 0.21 K/mm3 (0.00-0.68); EOSINOPHILS PERCENT AUTO 2 % (0-6); Hemoglobin 12.2 g/dL (11.5-16.0); IMMATURE GRAN ABSOLUTE AUTO 0.04 K/mm3 (0.00-0.10); IMMATURE GRAN PERCENT AUTO 0 % (0-1); LYMPHOCYTES ABSOLUTE AUTO 3.71 K/mm3 (0.84-5.20); LYMPHOCYTES PERCENT AUTO 35 % (21-46); MONOCYTES ABSOLUTE AUTO 0.83 K/mm3 (0.16-1.47); MONOCYTES PERCENT AUTO 8 % (4-13); Mean Corpuscular HGB 30.3 pg (26.0-34.0); Mean Corpuscular HGB Conc 33.9 g/dL (31.5-36.5); Mean Corpuscular Volume 89 fL (80-100); Mean Platelet Volume 9.1 fL (9.1-12.4); NEUTROPHILS ABSOLUTE AUTO 5.76 K/mm3 (1.96-9.15); NEUTROPHILS PERCENT AUTO 54 % (41-73); Platelet Count 369 K/mm3 (150-400); RDW Coefficient Variation 13.4 % (11.7-14.2); RDW Standard Deviation 43.9 fL (35.1-46.3); Red Blood Cell Count 4.03 M/mm3 (3.80-5.20); White Blood Cell Count 10.59 K/mm3 (4.00-11.30)
[2024-04-07 16:55] LABS: International Normalized Ratio 0.89; Prothrombin Time Results 9.6 Sec (9.7-11.5)
[2024-04-07 17:03] LABS: Albumin, Blood 3.9 g/dL (3.4-5.0); Albumin/Globulin Ratio 1.1 (0.8-1.8); Bilirubin, Total 0.5 mg/dL (0.1-1.0); Bun/Creatinine Ratio 28.1 (12.0-20.0); Calcium, Blood 9.8 mg/dL (8.5-10.1); Creatinine, Blood 0.5 mg/dL (0.40-1.00); Globulin, Blood 3.7 g/dL (2.2-4.0); Potassium, Blood 4.2 mmol/L (3.5-5.5); Total Protein, Blood 7.6 g/dL (6.4-8.2)
[2024-04-07] MEDS ORDERED: Ondansetron HCl 2 MG / ML 2ML Vial IV ONE (17:25)
[2024-04-07] MEDS ORDERED: HYDROmorphone HCl/Pf 1MG SYR IV ONE ×2 (17:25→18:35)
[2024-04-07] MEDS ORDERED: Ketorolac Tromethamine 15mg Vial IV ONE (18:35)
[2024-04-07] MEDS ORDERED: Lactated Ringer's 1,000 ML IV SCH (20:40)
[2024-04-07] MEDS ORDERED: Ondansetron HCl 2 MG / ML 2ML Vial IV PRN (20:40)
[2024-04-07] MEDS ORDERED: FLU VACC TS2024-25(6MOS UP)/PF 45 MCG/0.5 ML SYRINGE IM ONE (20:40)
[2024-04-07] MEDS ORDERED: HYDROmorphone HCl/Pf 1MG SYR IV PRN (20:40)
[2024-04-07] MEDS ORDERED: LORazepam 2 MG/ML 1ML Injection IV PRN (20:55)
[2024-04-07] MEDS ORDERED: Ketorolac Tromethamine 15mg Vial IV PRN (21:00)
[2024-04-07] MEDS ORDERED: Famotidine 20 MG Tab PO SCH (21:00)
[2024-04-07] MEDS ORDERED: LevETIRAcetam 500 MG Tab PO SCH ×2 (21:00)
[2024-04-07] MEDS ORDERED: Docusate Sodium 100 MG Cap PO SCH (21:00)
[2024-04-07] MEDS ORDERED: OxyCODONE 5 mg/Acetamin 325 mg TABLET PO PRN (21:30)
[2024-04-07 22:45] VITALS: BP 175/107
[2024-04-07] MEDS ORDERED: Lisinopril 5 MG Tab PO ONE (23:05)
[2024-04-07] MEDS ORDERED: HydrALAZINE HCl 25 MG Tab PO PRN (23:10)
[2024-04-08 00:06] VITALS: BP 142/99
[2024-04-08 05:08] VITALS: BP 98/65
[2024-04-08 05:26] VITALS: BP 116/86
[2024-04-08 07:08] VITALS: BP 121/86
--- NOTE | 2024-04-08 07:37 | NUR ---
SUMMARY PT ALERT WITH NO NEURO DEFICITS,DENIES CP OR SOB.PT REMAINS NPO,TOLERATING L ARM SLING,AMBULATES FOR BRP WITH SBA,VOIDING CLEAR YELLOW WITHOUT DIFF-NO APPEARANCE OFBLOOD IN URINE,ABD SOFT NON-TENDER,PT REPORTS MOST PAIN THIS AM L RIBS AND SHOULDER AFTER COUGHING,ENC PILLOW SPLINT,PT REPORTS MAY HAVE DIFF WITH TRANSPORTATION WHICH I NOTED ON ADMIT AND DAY RN AGREES TO FOLLOW UP. RADIOLOGY NOTIFIED ME THEY ARE ENROUTE TO PT FOR CT.
[2024-04-08] MEDS ORDERED: Lisinopril 5 MG Tab PO SCH (09:00)
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
[2024-04-08] MEDS ORDERED: OxyCODONE 5 mg/Acetamin 325 mg TABLET PO PRN (10:55)
[2024-04-08] MEDS ORDERED: Polyethylene Glycol 3350 17 gm PO PRN (10:55)
[2024-04-08] MEDS ORDERED: HyDROXyzine HCl 25 MG Tab PO PRN (10:55)
[2024-04-08] MEDS ORDERED: HYDROmorphone HCl/Pf 1MG SYR IV PRN (10:55)
[2024-04-08] MEDS ORDERED: Lidocaine 4% 1 Patch TOP SCH (11:00)
[2024-04-08] MEDS ORDERED: Enoxaparin 40 MG/0.4 ML SYR SC SCH (11:00)
[2024-04-08] MEDS ORDERED: Cyclobenzaprine HCl 10 MG Tab PO PRN (11:00)
[2024-04-08] MEDS ORDERED: Nicotine Polacrilex 2 MG Gum PO PRN (13:35)
[2024-04-08 16:08] VITALS: BP 105/78
--- NOTE | 2024-04-08 17:46 | NUR ---
SUMMARY PT ANXIOUS AND PAINFUL T/O SHIFT. MEDICATED PER ORDERS FOR BOTH. WORKED WITH THERAPY. SLING TO LUE. LIDOCAINE PATCHES TO L SHOULDER PER ORDERS. CALL LIGHT IN REACH.
[2024-04-08 19:54] VITALS: BP 128/80
[2024-04-09 02:20] VITALS: BP 113/79
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
[2024-04-09 07:46] VITALS: BP 122/87
[2024-04-09 09:00] LABS: Albumin, Blood 3.2 g/dL (3.4-5.0); Albumin/Globulin Ratio 0.9 (0.8-1.8); Bilirubin, Total 0.4 mg/dL (0.1-1.0); Bun/Creatinine Ratio 35.7 (12.0-20.0); Calcium, Blood 9.3 mg/dL (8.5-10.1); Creatinine, Blood 0.56 mg/dL (0.40-1.00); Globulin, Blood 3.5 g/dL (2.2-4.0); Potassium, Blood 4.4 mmol/L (3.5-5.5); Total Protein, Blood 6.7 g/dL (6.4-8.2)
[2024-04-09] MEDS ORDERED: Nicotine 14 MG PATCH TOP SCH (09:00)
--- NOTE | 2024-04-09 11:32 | NUR ---
MORNING NOTE THIS RN ASSUMED CARE AT APPROX 0715. PATIENT ALERT AND ORIENTED X4. COMMUNICATES NEEDS EFFECTIVELY. EXPERIENCES EPISODES OF ANXIETY - MANAGING PER EMAR AND WITH THERAPUETIC COMMUNICATION. VSS. ON ROOM AIR, SATs >90%. RR EVEN, UNLABORED. MANAGING PAIN PER EMAR. L ARM IN SLING. UP WITH SBA - SHOWERED THIS MORNING. CALL LIGHT IN REACH.
[2024-04-09] MEDS ORDERED: Acetaminophen325 M1 PO (12:21)
[2024-04-09] MEDS ORDERED: LEVE500 PO (12:23)
[2024-04-09] MEDS ORDERED: IBUP600 PO (12:24)
[2024-04-09] MEDS ORDERED: Cyclobenzaprine5 MG PO (12:25)
[2024-04-09] MEDS ORDERED: MIRALAX17 GM PO (12:26)
[2024-04-09] MEDS ORDERED: Percocet 5-3251 EACH PO (12:26)
[2024-04-09] MEDS ORDERED: PAIN RELIEF1 EACH TOP (12:26)
[2024-04-09 14:06] VITALS: BP 126/84
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
--- NOTE | 2024-04-09 14:38 | NUR ---
DISCHARGE NOTE NO ACUTE CHANGES SINCE PREVIOUS DOCUMENTATION. VSS. PAIN TOLERABLE WITH PRESCRIBED THERAPY. MD ALFARO ORDERED DC HOME. PATIENT AGREEABLE TO DC. IV REMOVED. DC EDUCATION PROVIDED - PATIENT STATES UNDERSTANDING. PRESCRIBED MEDICATIONS SENT ELECTRONICALLY TO [facility] BY MD ALFARO. PATIENT TRANSFERRED TO PERSONAL VEHICLE VIA WHEELCHAIR AT APPROX 1435. PERSONAL BELONGINGS WITH PATIENT.
== END 2024-04-09 14:41 | disposition home or self-care (01) ==
LOC: ER 16:09 → SURS 16:10 → ERHOLD 16:10 → SURS 20:36
PROVIDERS: Internal Medicine; Student in an Organized Health Care Education/Training Program; ADMIT Surgery
DX: S42.212A Unspecified displaced fracture of surgical neck of left humerus, initial encounter for closed fracture (principal); S42.252A Displaced fracture of greater tuberosity of left humerus, initial encounter for closed fracture; S22.32XA Fracture of one rib, left side, initial encounter for closed fracture; V09.09XA Pedestrian injured in nontraffic accident involving other motor vehicles, initial encounter; I10 Essential (primary) hypertension; E11.9 Type 2 diabetes mellitus without complications; G40.909 Epilepsy, unspecified, not intractable, without status epilepticus; J44.9 Chronic obstructive pulmonary disease, unspecified; F17.210 Nicotine dependence, cigarettes, uncomplicated; F10.20 Alcohol dependence, uncomplicated; Z79.899 Other long term (current) drug therapy; Z88.0 Allergy status to penicillin; Z66 Do not resuscitate
CPT/HCPCS: 36415; 70450; 71045; 71260; 72125; 73030; 73090; 73200; 74177; 80053; 83735; 84484; 84702; 85025; 85610; 85730; 93005; 93010; 96372; 96374-59; 96375; 96376; 97161; 97165; 97530; 97535; 99285-25; A9270; G0378; J1171; J1650; J1885; J2405; J3010; J7120; Q9967

== ENCOUNTER 2024-04-13 11:18 | Emergency (ER) | payer OTHER ==
[~2024-04-13] VITALS: Ht 160 cm; Wt 54.0 kg
[~2024-04-13 11:18] MED LIST changes: +Acetaminophen325 M1 PO; +MIRALAX17 GM PO; +PAIN RELIEF1 EACH TOP; +Percocet 5-3251 EACH PO
[2024-04-13 11:53] VITALS: BP 131/99
[2024-04-13] MEDS ORDERED: IMITREX50 M2 PO (12:41)
[2024-04-13] MEDS ORDERED: OXYC5 PO (12:41)
[2024-04-13] MEDS ORDERED: OxyCODONE 7.5 mg/Acetam 325 mg TABLET PO ONE (13:40)
== END 2024-04-13 13:54 | disposition home or self-care (01) ==
LOC: ER 11:18
DX: M79.632 Pain in left forearm (principal); F17.200 Nicotine dependence, unspecified, uncomplicated; Z79.899 Other long term (current) drug therapy; Z88.0 Allergy status to penicillin; Z88.5 Allergy status to narcotic agent
CPT/HCPCS: 73090; 99283-25; A9270

== ENCOUNTER 2024-07-18 10:45 | Emergency (ER) | payer OTHER ==
[~2024-07-18] VITALS: Ht 160 cm; Wt 63.5 kg
[~2024-07-18 10:45] MED LIST changes: +IMITREX50 M2 PO
[2024-07-18] MEDS ORDERED: LevETIRAcetam 500 MG Tab PO ONE (11:05)
[2024-07-18] MEDS ORDERED: Ondansetron HCl 2 MG / ML 2ML Vial IM ONE (11:10)
[2024-07-18 12:13] LABS: BASOPHILS ABSOLUTE AUTO 0.05 K/mm3 (0.00-0.23); BASOPHILS PERCENT AUTO 1 % (0-2); EOSINOPHILS ABSOLUTE AUTO 0.08 K/mm3 (0.00-0.68); EOSINOPHILS PERCENT AUTO 1 % (0-6); Hemoglobin 13.3 g/dL (11.5-16.0); IMMATURE GRAN ABSOLUTE AUTO 0.03 K/mm3 (0.00-0.10); IMMATURE GRAN PERCENT AUTO 0 % (0-1); LYMPHOCYTES ABSOLUTE AUTO 1.94 K/mm3 (0.84-5.20); LYMPHOCYTES PERCENT AUTO 20 % (21-46); MONOCYTES ABSOLUTE AUTO 0.47 K/mm3 (0.16-1.47); MONOCYTES PERCENT AUTO 5 % (4-13); Mean Corpuscular HGB 31.1 pg (26.0-34.0); Mean Corpuscular Volume 89 fL (80-100); NEUTROPHILS ABSOLUTE AUTO 7.26 K/mm3 (1.96-9.15); NEUTROPHILS PERCENT AUTO 74 % (41-73); RDW Coefficient Variation 16.8 % (11.7-14.2); Red Blood Cell Count 4.28 M/mm3 (3.80-5.20); White Blood Cell Count 9.83 K/mm3 (4.00-11.30)
[2024-07-18 12:35] LABS: Mean Platelet Volume 9.5 fL (9.1-12.4); Platelet Count 242 K/mm3 (150-400)
[2024-07-18 13:56] LABS: Beta HCG, Quantitative, Serum <1 mIU/mL (0-3)
[2024-07-18 13:57] LABS: Alanine Aminotransfer (ALT/SGP 50 U/L (12-78); Albumin, Blood 4.1 g/dL (3.4-5.0); Albumin/Globulin Ratio 1.1 (0.8-1.8); Alk Phos 140 U/L (50-136); Anion Gap 14 mmol/L (3-11); Aspartate Aminotrans (AST/SGOT 54 U/L (12-37); Bilirubin, Total 0.4 mg/dL (0.1-1.0); Blood Urea Nitrogen 8 mg/dL (8-24); Bun/Creatinine Ratio 23.3 (12.0-20.0); CO2, Blood 23 mmol/L (21-32); Calcium, Blood 9.7 mg/dL (8.5-10.1); Chloride, Blood 99 mmol/L (98-108); Creatinine, Blood 0.34 mg/dL (0.40-1.00); Globulin, Blood 3.9 g/dL (2.2-4.0); Glomerular Filtration Rate 131 (60-); Glucose, Blood 88 mg/dL (70-99); Potassium, Blood 3.8 mmol/L (3.5-5.5); Sodium, Blood 132 mmol/L (136-145)
[2024-07-18] MEDS ORDERED: levETIRAcetam 500 MG in NS 100 ML IV ONE (14:10)
[2024-07-18] MEDS ORDERED: NS 1,000 ML IV SCH (14:10)
[2024-07-18] MEDS ORDERED: Ondansetron HCl 2 MG / ML 2ML Vial ONE (14:13)
[2024-07-18] MEDS ORDERED: Acetaminophen 500 MG Tab PO ONE (14:15)
[2024-07-18 15:30] VITALS: BP 162/94
[2024-07-18] MEDS ORDERED: ONDA4ODT MM (15:40)
== END 2024-07-18 15:53 | disposition home or self-care (01) ==
LOC: ER 10:45
PROVIDERS: Student in an Organized Health Care Education/Training Program
DX: K52.9 Noninfective gastroenteritis and colitis, unspecified (principal); Z88.0 Allergy status to penicillin; Z88.5 Allergy status to narcotic agent; Z79.899 Other long term (current) drug therapy; I10 Essential (primary) hypertension; E11.9 Type 2 diabetes mellitus without complications; F43.10 Post-traumatic stress disorder, unspecified; F17.200 Nicotine dependence, unspecified, uncomplicated
CPT/HCPCS: 80053; 83690; 84702; 85025; 96365; 96375; 99284-25; A9270; J1953; J2405; J7030